=== PATIENT | male | born 1960 | race Caucasian/White ===

== ENCOUNTER 2016-07-25 21:01 | Emergency (ER) | payer MEDICARE, MEDICAID ==
[~2016-07-25] VITALS: Ht 167.6 cm; Wt 83.9 kg
--- NOTE | 2016-07-25 21:05 | NUR ---
PT PRESENTED TO THE ER WITH A C/O LEFT SIDED CP THAT RADIATES TO THE LEFT SHOULDER. PT IS AA&OX 4, RESP EVEN AND UNLABORED. PT IS ON THE MONITOR AND CONTINUOUS PULSE OX.
[2016-07-25] MEDS ORDERED: ONDANSETRON HCL/PF 4 MG/2 ML VIAL ONE (21:18)
[2016-07-25] MEDS ORDERED: MORPHINE SULFATE INJ 4 MG/ML DISP.SYRIN ONE (21:18)
[2016-07-25] MEDS ORDERED: ASPIRIN 325 MG TABLET ONE (21:18)
[2016-07-25 21:22] LABS: BASOPHILS # (AUTO) 0.1 /CMM (0.0-0.2); BASOPHILS % (AUTO) 1.6 % (0.0-2.0); EOSINOPHILS # (AUTO) 0.1 /CMM (0.0-0.7); EOSINOPHILS % (AUTO) 1.9 % (0.0-6.0); HEMATOCRIT 42 % (39-51); HEMOGLOBIN 14.1 g/dL (13.5-17.5); LYMPHOCYTES # (AUTO) 2.4 /CMM (0.8-4.8); LYMPHOCYTES % (AUTO) 31.9 % (20.0-44.0); MEAN CORPUSCULAR HEMOGLOBIN 31 PG (26.0-33.0); MEAN CORPUSCULAR HGB CONC 34 g/dl (31.0-36.0); MEAN CORPUSCULAR VOLUME 92 fL (80-96); MONOCYTES # (AUTO) 0.4 /CMM (0.1-1.30); MONOCYTES % (AUTO) 5.8 % (2.0-12.0); NEUTROPHILS # (AUTO) 4.6 /CMM (1.8-8.9); NEUTROPHILS % (AUTO) 58.8 % (43.0-81.0); PLATELET COUNT (AUTO) 211 /CMM (150-450); RDW COEFFICIENT OF VARIATION 13.1 (11.5-15.0); WHITE BLOOD COUNT (AUTO) 7.6 K/uL (4.3-11.0)
[2016-07-25] MEDS ORDERED: MORPHINE SULFATE INJ 2 MG/ML DISP.SYRIN IV ONE (21:30)
[2016-07-25] MEDS ORDERED: ONDANSETRON HCL/PF 4 MG/2 ML VIAL IVP ONE (21:30)
[2016-07-25] MEDS ORDERED: ASPIRIN 325 MG TABLET PO ONE (21:30)
[2016-07-25 21:33] LABS: CALCIUM, SERUM 8.9 mg/dL (8.5-10.1); CARBON DIOXIDE 25 mmol/L (21-32); CHLORIDE 104 mmol/L (98-107); GLUCOSE 118 mg/dL (74-106); POTASSIUM 3.5 mmol/L (3.5-5.1); SODIUM SERUM 139 mmol/L (136-145); UREA NITROGEN, BLOOD 10 mg/dL (7-18)
[2016-07-25 21:36] LABS: INR 1.08 (0.87-1.13); PROTHROMBIN TIME 11.2 SECS (9.5-12.7)
[2016-07-25 21:41] LABS: TROPONIN I < 0.017 ng/mL (0.00-0.056)
[2016-07-25 21:48] LABS: ALANINE AMINOTRANSFERASE 21 U/L (12-78); ALBUMIN 3.9 g/dL (3.4-5.0); ALKALINE PHOSPHATASE 70 U/L (46-116); ASPARTATE AMINOTRANSFERASE 17 U/L (15-37); BILIRUBIN,TOTAL 0.2 mg/dL (0.2-1.0); TOTAL PROTEIN, SERUM 7.6 g/dL (6.4-8.2)
--- NOTE | 2016-07-25 22:03 | NUR ---
PT APPEARS TO BE RESTING COMFORTABLY. NO S/S OR C/O PAIN. VSS
--- NOTE | 2016-07-25 23:55 | NUR ---
PT APPEARS TO BE RESTING COMFORTABLY. NO S/S OF PAIN OR DISTRESS.
--- NOTE | 2016-07-26 00:25 | NUR ---
DR. SMITH IS AT THE BEDSIDE SPEAKING TO THE PT AND HIS .
--- NOTE | 2016-07-26 00:28 | NUR ---
REPEAT EKG DONE AT THE BEDSIDE.
[2016-07-26 00:56] VITALS: BP 136/84
--- NOTE | 2016-07-26 00:58 | NUR ---
IV removed. Catheter intact and site benign. Pressure and 4x4 applied to site. No bleeding noted.Patient discharged to home in stable condition. Written and verbal after care instructions given. Patient verbalizes understanding of instruction. PT'S IS DRIVING PT HOME. PT REC'D A COPY OF ALL LABS, EKG'S AND CXR FINDINGS.
== END 2016-07-26 00:57 | disposition home or self-care (01) ==
LOC: ER 21:04
DX: R07.89 Other chest pain (principal); F17.210 Nicotine dependence, cigarettes, uncomplicated
CPT/HCPCS: 36415; 71010; 80048; 80076; 84484 ×2; 85025; 85730; 93005 ×2; 96374; 96375; 99285; A4606; J2270; J2405; Z7610

== ENCOUNTER 2024-12-20 06:28 | Inpatient (IN) | payer MEDICARE, OTHER ==
[~2024-12-20] VITALS: Ht 167.6 cm; Wt 77.1 kg
[2024-12-20] MEDS ORDERED: LIDOCAINE 2%-EPI 1:100,000 30 ML VIAL ONE (07:06)
[2024-12-20] MEDS ORDERED: GENTAMICIN 80 MG/2 ML VIAL ONE (07:06)
[2024-12-20] MEDS ORDERED: POLYMYXIN B SULFATE 500,000 UNITS ONE (07:06)
[2024-12-20] MEDS ORDERED: BUPIVACAINE 0.5 % PF 150 MG/30 ML VIAL ONE (07:06)
[2024-12-20] MEDS ORDERED: dexaMETHasone SOD PHOSPHATE 2 ML ONE (07:07)
[2024-12-20] MEDS ORDERED: CEFAZOLIN 1 GM ONE (07:07)
[2024-12-20] MEDS ORDERED: VANCOMYCIN 1 GM VIAL ONE (07:07)
[2024-12-20] MEDS ORDERED: FENTANYL PF 250MCG/5ML AMPUL ONE (07:18)
[2024-12-20] MEDS ORDERED: ROCURONIUM BROMIDE 50 MG/5 ML ONE (07:20)
[2024-12-20] MEDS ORDERED: hydrALAZINE HCL IV 20 MG VIAL ONE (08:48)
[2024-12-20] MEDS ORDERED: LABETALOL HCL IV 100MG VIAL ONE (08:48)
[2024-12-20] MEDS ORDERED: PIPERACILLIN /TAZOBACTAM 3.375 G in IV D5W 50 ML IV ONE (09:00)
[2024-12-20] MEDS ORDERED: TRIAMCINOLONE OINT 0.1% 15 GM TUBE TP SCH (11:30)
[2024-12-20] MEDS ORDERED: TRIAMCINOLONE OINT 0.1% 15 GM TUBE TP ONE (11:30)
[2024-12-20] MEDS ORDERED: FENTANYL PF 100MCG/2ML AMPUL ONE (11:59)
[2024-12-20 13:08] VITALS: BP 112/67; TEMP 98.3; O2SAT 95
[2024-12-20] MEDS ORDERED: ONDANSETRON HCL/PF 4 MG/2 ML VIAL IV PRN ×2 (13:30)
[2024-12-20] MEDS ORDERED: ACETAMINOPHEN 325 MG TABLET PO PRN ×2 (13:30→17:00)
[2024-12-20] MEDS: HYDROMORPHONE 1 MG/1 ML DISP.SYRIN IV PRN (13:31)
[2024-12-20] MEDS ORDERED: ROSU40TA23 PO (15:47)
[2024-12-20] MEDS ORDERED: FENO160T PO (15:47)
[2024-12-20] MEDS ORDERED: EMPA10TA PO (15:47)
[2024-12-20 16:02] VITALS: BP 120/55; TEMP 98.2; O2SAT 96
[2024-12-20] MEDS: CHLORHEXIDINE GLUCONATE 15 ML UDC MM SCH (17:12)
[2024-12-20] MEDS: TRIAMCINOLONE ACETONIDE 0.1% CR 15 GM TUBE TP SCH (17:22)
[2024-12-20] MEDS: IV NS 0.9% 1,000 ML IV PRN (17:25)
[2024-12-20] MEDS: ONDANSETRON HCL/PF 4 MG/2 ML VIAL IVP PRN (18:05)
[2024-12-20] MEDS: VANCOMYCIN 1 GM in IV D5W 250ml IV SCH (18:27)
[2024-12-20 20:00] VITALS: BP 107/54; TEMP 98.3; O2SAT 97
[2024-12-20] MEDS: ZOSYN IVPB 3.375 G in IV D5W 50ml IV SCH (20:03)
[2024-12-20 20:25] VITALS: BP 107/54; TEMP 98.3; O2SAT 97
[2024-12-20] MEDS: ATORVASTATIN 40 MG TABLET PO SCH (22:03)
[2024-12-21 08:00] VITALS: BP 104/60; TEMP 97.7; O2SAT 96
[2024-12-21] MEDS: FENOFIBRATE NANOCRYS (145 MG) 145 MG TABLET PO SCH (08:23)
[2024-12-21] MEDS: EMPAGLIFLOZIN 10 MG TABLET PO SCH (08:24)
[2024-12-25 07:10] LABS: *SPE A/G RATIO 0.9 (0.7-1.7); *SPE ALBUMIN 3.6 g/dL (2.9-4.4); *SPE ALPHA-1-GLOBULIN 0.3 g/dL (0.0-0.4); *SPE ALPHA-2-GLOBULIN 0.8 g/dL (0.4-1.0); *SPE BETA GLOBULIN 1.2 g/dL (0.7-1.3); *SPE GLOBULIN, TOTAL 4.0 g/dL (2.2-3.9); *SPE M-SPIKE Not Observed g/dL (Not Observed); *SPE PROTEIN TOTAL 7.6 g/dL (6.0-8.5); *SPEGAMMA GLOBULIN 1.7 g/dL (0.4-1.8)
== END 2024-12-21 11:51 | disposition home or self-care (01) | DRG 501 ==
LOC: DS 06:28 → MED 12:54
PROVIDERS: ADMIT Nurse Practitioner Acute Care; ATTEND Nurse Practitioner Acute Care
PROC: 0NSV04Z Reposition Left Mandible with Internal Fixation Device, Open Approach (ICD-10-PCS; 2024-12-20)
PROC: 0NUV07Z Supplement Left Mandible with Autologous Tissue Substitute, Open Approach (ICD-10-PCS; 2024-12-20)
PROC: 0NBR0ZZ Excision of Maxilla, Open Approach (ICD-10-PCS; 2024-12-20)
PROC: 0KX10Z1 Transfer Facial Muscle with Subcutaneous Tissue, Open Approach (ICD-10-PCS; 2024-12-20)
PROC: 0NBT0ZZ Excision of Right Mandible, Open Approach (ICD-10-PCS; 2024-12-20)
PROC: 0NBV0ZZ Excision of Left Mandible, Open Approach (ICD-10-PCS; 2024-12-20)
PROC: 09BQ0ZZ Excision of Right Maxillary Sinus, Open Approach (ICD-10-PCS; 2024-12-20)
PROC: 0N5V0ZZ Destruction of Left Mandible, Open Approach (ICD-10-PCS; 2024-12-20)
PROC: 0NPW04Z Removal of Internal Fixation Device from Facial Bone, Open Approach (ICD-10-PCS; principal; 2024-12-20 07:30)
DX: T84.69XA Infection and inflammatory reaction due to internal fixation device of other site, initial encounter (principal); L03.818 Cellulitis of other sites; S02.69XB Fracture of mandible of other specified site, initial encounter for open fracture; T81.83XA Persistent postprocedural fistula, initial encounter; E11.9 Type 2 diabetes mellitus without complications; D16.5 Benign neoplasm of lower jaw bone; J32.0 Chronic maxillary sinusitis; E78.5 Hyperlipidemia, unspecified; I10 Essential (primary) hypertension; I08.0 Rheumatic disorders of both mitral and aortic valves; Y83.8 Other surgical procedures as the cause of abnormal reaction of the patient, or of later complication, without mention of misadventure at the time of the procedure; M27.2 Inflammatory conditions of jaws; I25.10 Atherosclerotic heart disease of native coronary artery without angina pectoris; Z95.5 Presence of coronary angioplasty implant and graft; Z85.6 Personal history of leukemia; R00.1 Bradycardia, unspecified; K13.79 Other lesions of oral mucosa; X58.XXXA Exposure to other specified factors, initial encounter; Y93.9 Activity, unspecified; M84.88 Other disorders of continuity of bone, other site; Y92.009 Unspecified place in unspecified non-institutional (private) residence as the place of occurrence of the external cause
CPT/HCPCS: 36415; 71046; 80053-TC; 80061-TC; 82962-TC; 84153-TC; 84155; 84165; 85025-TC; A4223; A4338; C1713; C1781; G0378; J0330; J0360; J0690; J1100; J1171; J1580; J1644; J2405; J2543; J2704; J3010; J3373; J3490; J7030; J7060